=== PATIENT | male | born 1960 | race American Indian/Alaskan Native ===

== ENCOUNTER 2018-12-17 08:49 | Outpatient (CLI) | payer OTHER ==
--- NOTE | 2018-12-17 11:27 | Vascular Lab Report ---
PROCEDURE: VL VENOUS DUPLEX LE BILAT TECHNIQUE: Duplex Doppler sonography of the BILATERAL lower extremities. Martinez scale imaging with and without compression, spectral waveform analysis with and without augmentation, and color flow Dopple r were employed. HISTORY: BILATERAL LEG PAIN COMPARISONS: None FINDINGS: RIGHT lower EXTREMITY: Deep Venous Thrombus: None Superficial Venous Thrombus: None Venous valvular incompetence: There is reflux within the right common femoral vein. Soft tissue abnormality: None LEFT lower EXTREMITY: Deep Venous Thrombus: There is venous thrombosis involving the left superficial femoral vein, poplit eal vein, posterior tibial vein, and peroneal vein. Superficial Venous Thrombus: None Venous valvular incompetence: There is reflux in the left common femoral vein and left saphenofemora l junction. Soft tissue abnormality: None IMPRESSION: Deep venous thrombosis involving the left superficial femoral vein, popliteal vein, posterior tibial vein, and peroneal vein (the referring doctor was aware of the findings at the time of the exam, as p er the cytometry technologist). No evidence of deep venous thrombosis of the right lower extremity. This document is electronically signed by Bozena Chavez MD., December 17 2018 11:25:01 AM ET
== END 2018-12-17 08:50 | disposition home or self-care (01) ==
LOC: VAS 08:49
PROVIDERS: ATTEND Internal Medicine
DX: I82.412 Acute embolism and thrombosis of left femoral vein (principal); I82.432 Acute embolism and thrombosis of left popliteal vein; I82.442 Acute embolism and thrombosis of left tibial vein; M79.604 Pain in right leg
CPT/HCPCS: 93970